=== PATIENT | female | born 1990 | race Caucasian/White ===

== ENCOUNTER 2018-01-01 22:15 | Emergency (ER) | payer OTHER ==
[2018-01-01 22:44] VITALS: BP 117/68; PULSE 76; TEMP 97.6; BMI 19.5
[2018-01-01] MEDS ORDERED: TETANUS AND DIPHTHERIA TOXOID 0.5 ML DISP.SYRIN IM ONE (23:43)
--- NOTE | 2018-01-01 23:43 | PDOC ---
History of Present Illness - General Chief Complaint: Laceration Stated Complaint: RIGHT HAND INJURY Time Seen by Provider: 01/01/18 22:57 History Source: Patient Exam Limitations: No Limitations - History of Present Illness Initial Comments: 01/01/18 23:38 27-year-old female who is right hand dominant presents to the emergency department complaining of a laceration to the distal aspect of her right second digit. Patient states she cut her across a glass frame 9 hours ago. Bleeding controlled with direct pressure. Patient denies any other injuries or complaints. Last tetanus: Unknown. Timing/Duration: reports: this morning Past History - Suicide/Smoking/Psychosocial Hx Smoking History: Never smoked Have you smoked in the past 12 months: No Information on smoking cessation initiated: No Hx Alcohol Use: No Drug/Substance Use Hx: No Review of Systems - Review of Systems Able to Perform ROS?: Yes Comments:: 01/01/18 23:39 MUSCULOSKELETAL: Absent: myalgia, arthralgia, joint swelling SKIN: Absent: rash, itching, pallor HEMATOLOGIC/IMMUNOLOGIC: Absent: easy bleeding, easy bruising, lymphadenopathy, frequent infections Right second digit: Positive pain Denies numbness or tingling sensation Is the patient limited Macedonian proficient: No *Physical Exam - Vital Signs Last Vital Signs Temp Pulse Resp BP Pulse Ox 97.6 F 76 18 117/68 100 01/01/18 22:40 01/01/18 22:40 01/01/18 22:40 01/01/18 22:40 01/01/18 22:40 - Physical Exam Comments: 01/01/18 23:41 GENERAL: Well developed, well nourished. Awake and alert. No acute distress. SKIN: Warm and dry. Normal capillary refill. No rashes. No jaundice. Right second digit 1 cm transverse laceration to the distal aspect Bleeding controlled with direct pressure 2 point sensation intact Procedure: Right second digit Distal aspect/1 cm transverse laceration Betadine prep 1% lidocaine/1.5 mL digital block (2) 5.0 nylon simple interrupted Bacitracin Band-Aid *DC/Admit/Observation/Transfer Diagnosis at time of Disposition: Finger laceration Qualifiers: Encounter type: initial encounter Finger: index finger Damage to nail status: without damage Foreign body presence: without foreign body Laterality: right Qualified Code(s): S61.210A - Laceration without foreign body of right index finger without damage to nail, initial encounter - Discharge Dispostion Condition at time of disposition: Stable Admit: No - Referrals - Patient Instructions Printed Discharge Instructions: DI for Laceration Repair Additional Instructions: Keep the incision clean and dry for 24 hours. After 24 hours, you may allow the soap and water to rinse off your incision. Avoid direct pressure of the water to the incision. Pat the incision dry with a clean clothe. Apply a small amount of bacitracin onto the incision. Cover the incision loosely with a bandaid. Take tylenol/motrin as needed for pain. Follow up with your physician or the ER in 48 hours for a wound check. Return to the ER if you notice red streaks, increase redness/swelling/severe pain to the incision. Suture removal in 11 days. - Post Discharge Activity
== END 2018-01-02 00:23 | disposition home or self-care (01) ==
LOC: JER 22:15
PROC: 3E0234Z Introduction of Serum, Toxoid and Vaccine into Muscle, Percutaneous Approach (ICD-10-PCS; principal; 2018-01-01)
PROC: 0JQJ0ZZ Repair Right Hand Subcutaneous Tissue and Fascia, Open Approach (ICD-10-PCS; 2018-01-01)
DX: S61.210A Laceration without foreign body of right index finger without damage to nail, initial encounter (principal); W25.XXXA Contact with sharp glass, initial encounter; Y93.89 Activity, other specified; Y92.89 Other specified places as the place of occurrence of the external cause; Y99.8 Other external cause status
CPT/HCPCS: 99283-25